=== PATIENT | male | born 1995 | race Caucasian/White ===

== ENCOUNTER 2023-07-15 17:46 | Emergency (ER) | payer OTHER, SELFPAY ==
--- NOTE | ~2023-07-15 | XR_ITS ---
EXAMINATION: XR finger 1st RT min 2V DATE: 07/15/2023 18:40 INDICATION: Right thumb pain. TECHNIQUE: 3 views of right thumb were obtained. COMPARISON: None. FINDINGS: Bone alignment is normal. No fracture. There is mild osteoarthritis of first metacarpophala ngeal joint. IMPRESSION: 1. Mild osteoarthritis of first metacarpophalangeal joint. Reviewed, dictated and finalized at location E.
[2023-07-15 17:56] VITALS: BP 138/77; PULSE 65; RESP 20; TEMP 36.8; O2SAT 100
--- NOTE | 2023-07-15 18:31 | ED_ITS ---
HPI - General Adult General Chief complaint: Extremity Injury, Upper Stated complaint: Foreigh Body In Right Hand Source: patient Mode of arrival: ambulatory Limitations: no limitations History of Present Illness HPI narrative: Patient presents for evaluation pain in the right thumb. He indicates he was chopping wood with an Axe just prior to arrival when he sustained a puncture wound to the affected digit. He was able to extract a fragment of wood from the puncture site but believes there is still a retained wood fragment. At baseline his pain is 3/10 severity but increases to 8-9/10 with movement and palpation of the affected area. Reports numbness in the distal phalanx of the right thumb. He reports decreased range of motion secondary to pain. He is right-hand dominant. He has not taken any medication to assist with the symptoms. He is up to date on tetanus. He is not diabetic. Related Data Allergies Allergy/AdvReac Type Severity Reaction Status Date / Time ibuprofen Allergy Swelling Verified 07/15/23 18:48 Review of Systems Review of Systems: CONSTITUTIONAL: Denies fever, chills, or sweats. EYES: Denies visual changes, redness, or discharge. ENT: Denies rhinorrhea, congestion, sore throat, or otalgia. CARDIOVASCULAR: Denies chest pain, palpitations, or edema. RESPIRATORY: Denies cough or dyspnea. GASTROINTESTINAL: Denies abdominal pain, nausea, vomiting, or diarrhea. GENITOURINARY: Denies dysuria or hematuria. SKIN: Reports puncture wound to the right thumb. MUSCULOSKELETAL: Reports pain and swelling in the right thumb. NEUROLOGIC: Denies headache, numbness, dizziness, or weakness. PSYCHIATRIC: Denies anxiety or depression. [facility] Past Medical History Medical History No pertinent past medical history Surgical History Surgical History No pertinent past surgical history Family History Family History Mother Family history non-contributory Social History Social History Living arrangements: with family Gender identity (if verbalized by the patient): Male Spiritual care concerns: No Exam Narrative: GENERAL: Well-appearing, well-nourished, and in no acute distress. HEAD: Normocephalic, atraumatic. EYES: PERRLA and EOMI. ENT: Nares clear, no rhinorrhea or epistaxis. Mucous membranes moist. Oropharynx without tonsillar hypertrophy exudate or other lesions. Bilateral T Ms pearly omrales nonbulging NECK: Supple. No adenopathy or masses. No carotid bruits or JVD CHEST: Clear to auscultation. No respiratory distress. No wheezes rales or rhonchi HEART: Regular rate and rhythm. No murmur heard. Normal peripheral pulses. ABDOMEN: Soft, nontender, nondistended, normal active bowel sounds. EXTREMITIES: Decreased range of motion of the MCP and IP joints of the right thumb secondary to pain. There is tenderness in the right thumb proximal to the abrasion/puncture wound SKIN: There is a puncture cassandra/linear abrasion noted to the palmar aspect of the right thumb NEURO: No focal deficits. Alert and oriented x3. PSYCH: Normal mood and affect. Course Course Emergency Course: This is a 28-year-old male who presented for evaluation of right thumb pain following an injury just prior to arrival. X-ray was performed and there is no radiopaque foreign body. No evidence of fracture. He was significantly tender proximal to the site of the puncture wound. I was concerned about tendon injury. I contacted [facility] and spoke with hand surgeon, Dr. Palomares, recommended covering with oral antibiotics, splint, and follow up with hand surgery in clinic. Wound was cleaned. Splint was applied. Patient tolerated well. Declined analgesics upon discharge. Will cover with cephalexin. Provided with hand surgery clinic follow-up. Go to the ER for evidence of infection. Patient in agreement with plan of care. Level of Care: Express Care Visit Vital Signs Vital signs: Vital Signs Temperature 36.8 C 07/15/23 17:56 Pulse Rate 65 07/15/23 17:56 Respiratory Rate 20 07/15/23 17:56 Blood Pressure 138/77 07/15/23 17:56 Pulse Oximetry 100 07/15/23 17:56 Oxygen Delivery Room Air 07/15/23 17:56 Temperature 36.8 C 07/15/23 17:56 Pulse Rate 65 07/15/23 17:56 Respiratory Rate 20 07/15/23 17:56 Blood Pressure 138/77 07/15/23 17:56 Pulse Oximetry 100 07/15/23 17:56 Oxygen Delivery Room Air 07/15/23 17:56 Procedures Orthopedic Splinting/Casting Injury #1: Splinting/Casting Date: 07/15/23 Splinting/Casting Time: 19:32 Side: right Upper Extremity Injury Location: finger (thumb) Splint: prefabricated Pre-Procedure Neuro Vascular Exam: normal Post-Procedure Neuro Vascular Exam: normal Medical Decision Making Vital Signs Vital Signs: Vital Signs Temperature 36.8 C 07/15/23 17:56 Pulse Rate 65 07/15/23 17:56 Respiratory Rate 20 07/15/23 17:56 Blood Pressure 138/77 07/15/23 17:56 Pulse Oximetry 100 07/15/23 17:56 Oxygen Delivery Room Air 07/15/23 17:56 Temperature 36.8 C 07/15/23 17:56 Pulse Rate 65 07/15/23 17:56 Respiratory Rate 20 07/15/23 17:56 Blood Pressure 138/77 07/15/23 17:56 Pulse Oximetry 100 07/15/23 17:56 Oxygen Delivery Room Air 07/15/23 17:56 Imaging Data Radiologist's impression: EXAMINATION: XR finger 1st RT min 2V DATE: 07/15/2023 18:40 INDICATION: Right thumb pain. TECHNIQUE: 3 views of right thumb were obtained. COMPARISON: None. FINDINGS: Bone alignment is normal. No fracture. 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 IMPRESSION: 1. Mild osteoarthritis of first metacarpophalangeal joint. Discharge Plan Discharge Clinical Impression: Puncture wound of thumb, right Patient Disposition: Home, Self-Care Condition: Stable Instructions: Antibiotic Form, Puncture Wound (DC) Additional Instructions: PLEASE CALL [facility] TOMORROW FOR AN APPOINTMENT I SPOKE WITH DR JOSÉ DIA PLEASE CALL FOR APPOINTMENT ADDRESS IS [address] [place] [address] Patient Language: Kiswahili Prescriptions: New cephalexin 500 mg capsule 500 mg PO Q6H 10 Days Qty: 40 0RF Follow-up/Referrals: Hilton Agustin MD [Physician] - Stand Alone Forms: Work/School Release IP Time of Disposition: 19:30
== END 2023-07-15 19:35 | disposition home or self-care (01) ==
PROVIDERS: Emergency Provider Nurse Practitioner
DX: S61.031A Puncture wound without foreign body of right thumb without damage to nail, initial encounter (principal); X58.XXXA Exposure to other specified factors, initial encounter
CPT/HCPCS: 29130; 73140; 90471; 99203; G0463